=== PATIENT | male | born 1955 | race Caucasian/White ===

== ENCOUNTER 2023-11-26 15:01 | Outpatient (CLI) | payer MEDICARE, OTHER ==
[2023-11-26 15:50] LABS: Hematocrit 37.2 % (38.8-50.0); Hemoglobin 12.2 g/dL (13.5-17.5); Mean Corpuscular HGB CONC 32.8 g/dL (32.0-36.0); Mean Corpuscular Hemoglobin 29.1 pg (27.0-33.0); Mean Corpuscular Volume 88.8 fl (81.2-95.1); Mean Platelet Volume 8.8 fl (7.4-10.4); Platelet Count 227 10x3/uL (150-450); RBC Distribution Width 12.6 % (11.5-14.5); Red Blood Cell (RBC) Count 4.19 10x6/uL (4.32-5.72); White Blood Cell (WBC) Count 7.5 10x3/uL (3.5-10.5)
[2023-11-26 16:04] LABS: INR-International Normal Ratio 1.1; PTT 27.3 sec (22.0-33.0); Prothrombin Time 11.9 sec (9.5-12.1)
== END 2023-11-26 15:02 | disposition home or self-care (01) ==
LOC: LABBT 15:01
PROVIDERS: ATTEND Neurological Surgery
DX: Z01.812 Encounter for preprocedural laboratory examination (principal); M48.061 Spinal stenosis, lumbar region without neurogenic claudication
CPT/HCPCS: 85027; 85610; 85730